=== PATIENT | male | born 1995 | race Caucasian/White ===

== ENCOUNTER 2020-10-28 12:51 | Emergency (ER) | payer BC, SELFPAY ==
--- NOTE | ~2020-10-28 | XR_ITS ---
XR ankle RT min 3V 10/28/2020 13:14 INDICATION: Right ankle pain PROCEDURE: 4 views right ankle COMPARISON: No prior studies for comparison. FINDINGS: Fracture, dislocation or subluxation is not identified. The soft tissues appear within norm al limits. No foreign bodies are identified. IMPRESSION: 1: NO ACUTE BONE OR JOINT ABNORMALITY IDENTIFIED. Reviewed, dictated and finalized at location A. ANESTHESIA NURSE
[2020-10-28 13:02] VITALS: BP 148/62; PULSE 95; RESP 16; TEMP 36.7; O2SAT 100
--- NOTE | 2020-10-28 13:30 | ED.GENADULT ---
HPI - General Adult General Chief complaint: Extremity Injury, Lower Stated complaint: right ankle pain Time Seen by Provider: 10/28/20 13:30 Source: patient Mode of arrival: ambulatory Limitations: no limitations History of Present Illness HPI narrative: 25-year-old male patient presents to the [facility] with complaints of right ankle pain. Patient states that he rolled his ankle today, about 30 minutes prior to arrival, when he was cutting wood today. Patient presented to the [facility] on crutches. Patient denies any numbness or tingling to the toes. Patient denies taking anything for the pain prior to arrival. Patient has current ice pack onto the ankle at this time. Related Data Home Medications Medication Instructions Recorded Confirmed No Home Medications 10/28/20 10/28/20 Allergies Allergy/AdvReac Type Severity Reaction Status Date / Time No Known Allergies Allergy Unverified 12/28/16 13:43 Review of Systems Review of Systems: Narrative: CONSTITUTIONAL: Denies fever, chills, or sweats. EYES: Denies visual changes, redness, or discharge. ENT: Denies rhinorrhea, congestion, sore throat, or otalgia. CARDIOVASCULAR: Denies chest pain, palpitations, or edema. RESPIRATORY: Denies cough or dyspnea. GASTROINTESTINAL: Denies abdominal pain, nausea, vomiting, or diarrhea. GENITOURINARY: Denies dysuria or hematuria. SKIN: Denies rash or itching. MUSCULOSKELETAL: Denies back pain, joint pain, or myalgia. Positive right ankle pain NEUROLOGIC: Denies headache, numbness, or weakness. PSYCHIATRIC: Denies anxiety or depression. [facility] Past Medical History Medical History (Updated 10/28/20 @ 13:32 by CHINYERE Gotti) No significant medical problems Comments At the time of my signature I agree with nursing past medical history, surgical, social, and family history. There is no relevant family history pertinent to the presenting complaint. Exam Narrative: Exam Narrative: GENERAL: Well-appearing, well-nourished, and in no acute distress. HEAD: Normocephalic, atraumatic. EYES: PERRLA and EOMI. ENT: Nares clear, no rhinorrhea or epistaxis. Mucous membranes moist. NECK: Supple. No lymphadenopathy CHEST: Clear to auscultation. No respiratory distress. HEART: Regular rate and rhythm. No murmur heard. Normal peripheral pulses. ABDOMEN: Soft, nontender, nondistended, normal active bowel sounds. EXTREMITIES: Patient is unable to bear weight and ambulate on the right foot without pain. The R ankle is without obvious asymmetry or deformity when compared to the L ankle. Patient can flex/extend but is weaker than the left ankle, normal invert/rustam. No obvious surface trauma, ecchymosis, or soft tissue swelling. Bony tenderness to palpation over the lateral malleolus. Anterior talofibular ligament, posterior talofibular ligament, calcaneofibular ligament nontender and without swelling. No tenderness or deformity of the midfootor over the proximal fifth metatarsal. Good DP and posterior tibial pulses and sensation to light touch normal. Talar tilt test is negative for ligament laxity to valgus or vargus stress. Negative anterior draw. Peroneal nerve is intact with strong eversion and plantar flexion. SKIN: Warm, dry, no rash. NEURO: No focal deficits. Alert and oriented x3. Course Vital Signs Vital signs: Vital Signs Temperature 36.7 C 10/28/20 13:02 Pulse Rate 95 10/28/20 13:02 Respiratory Rate 16 10/28/20 13:02 Blood Pressure 148/62 H 10/28/20 13:02 Pulse Oximetry 100 10/28/20 13:02 Temperature 36.7 C 10/28/20 13:02 Pulse Rate 95 10/28/20 13:02 Respiratory Rate 16 10/28/20 13:02 Blood Pressure 148/62 H 10/28/20 13:02 Pulse Oximetry 100 10/28/20 13:02 Vital signs reviewed The patient has been informed that they may have pre-hypertension or Hypertension based on a BP reading in the department. I recommend that the patient call the primary care provider listed on their discharge instruct
== END 2020-10-28 13:38 | disposition home or self-care (01) ==
PROVIDERS: Emergency Provider Nurse Practitioner Family
DX: S93.401A Sprain of unspecified ligament of right ankle, initial encounter (principal); X50.9XXA Other and unspecified overexertion or strenuous movements or postures, initial encounter
CPT/HCPCS: 73610; 99213; G0463

== ENCOUNTER 2022-02-16 16:32 | Emergency (ER) | payer OTHER, SELFPAY ==
--- NOTE | ~2022-02-16 | XR_ITS ---
EXAMINATION: XR foot RT min 3V, XR ankle RT min 3V EXAM DATE: 02/16/2022 17:14 INDICATION: Right foot, ankle pain. Injury, initial encounter. Stepped in a hole. TECHNIQUE: Right foot dorsoplantar, lateral and oblique projections obtained and reviewed. Right ank le frontal, lateral and oblique projections obtained and reviewed. Correlation is made to right ankle x-ray from 10/28/2020. FINDINGS: Right metatarsal bones unremarkable. The right ankle mortise appears intact. Mild subtala r joint osteoarthritis, could be posttraumatic in patients age. There are no acute fractures or dislo cations identified. There is no subcutaneous gas. The soft tissue is unremarkable. There are no r adiopaque foreign bodies. IMPRESSION: 1. Right foot, ankle exam without acute osseous findings. Reviewed, dictated and finalized at location G. IMPRESSION: 1. Right foot, ankle exam without acute osseous findings.
[2022-02-16 16:36] VITALS: BP 135/95; PULSE 82; RESP 14; TEMP 36.5; O2SAT 97
--- NOTE | 2022-02-16 16:57 | ED.LOWEXIN ---
HPI - Extremity Injury (Lower) General Chief Complaint: Extremity Injury, Lower Stated Complaint: right ankle inj Time Seen by Provider: 02/16/22 16:48 History of Present Illness HPI Narrative: 26-year-old male presents emergency room with complaints of a right pain. Patient states that he actually stepped into a hole in the sidewalk and suffered an inversion injury. Patient is able ambulate with pain. No history of prior injuries to the. Related Data Allergies Allergy/AdvReac Type Severity Reaction Status Date / Time No Known Allergies Allergy Verified 02/16/22 16:48 Review of Systems Review of Systems: CONSTITUTIONAL: Denies fever, chills, or sweats. EYES: Denies visual changes, redness, or discharge. ENT: Denies rhinorrhea, congestion, sore throat, or otalgia. CARDIOVASCULAR: Denies chest pain, palpitations, or edema. RESPIRATORY: Denies cough or dyspnea. GASTROINTESTINAL: Denies abdominal pain, nausea, vomiting, or diarrhea. GENITOURINARY: Denies dysuria or hematuria. SKIN: Denies rash or itching. MUSCULOSKELETAL: Reports right ankle pain NEUROLOGIC: Denies headache, numbness, dizziness, or weakness. PSYCHIATRIC: Denies anxiety or depression. [facility] Past Medical History Medical History No significant medical problems Exam Narrative: GENERAL: Well-appearing, well-nourished, and in no acute distress. HEAD: Normocephalic, atraumatic. EYES: PERRLA and EOMI. ENT: Nares clear, no rhinorrhea or epistaxis. Mucous membranes moist. CHEST: Clear to auscultation. No respiratory distress. No wheezes rales or rhonchi HEART: Regular rate and rhythm. No murmur heard. Normal peripheral pulses. EXTREMITIES: Right ankle: Tenderness and soft tissue swelling around the anterior talofibular ligament; no obvious bony abnormality; no joint laxity; neurovascular distally intact SKIN: Warm, dry, no rash. NEURO: No focal deficits. Alert and oriented x3. PSYCH: Normal mood and affect. Course Vital Signs Vital signs: Vital Signs Temperature 36.5 C 02/16/22 16:36 Pulse Rate 82 02/16/22 16:36 Respiratory Rate 14 02/16/22 16:36 Blood Pressure 135/95 H 02/16/22 16:36 Pulse Oximetry 97 02/16/22 16:36 Temperature 36.5 C 02/16/22 16:36 Pulse Rate 82 02/16/22 16:36 Respiratory Rate 14 02/16/22 16:36 Blood Pressure 135/95 H 02/16/22 16:36 Pulse Oximetry 97 02/16/22 16:36 MDM - Extremity Injury (Lower) MDM Narrative Medical decision making narrative: 18-year-old male presented emergency room complaints of right ankle pain after twisting his ankle walking into: The sidewalk. X-rays of his ankle and foot show no acute abnormalities. Patient likely has low-grade sprain of his anterior talofibular ligament. We will plan Nicolas bandage and discussed conservative management. Differential Diagnosis Differential diagnosis: Likely ankle sprain and strain Medical Records Attestation: I reviewed the patient's medical records. Imaging Data Radiologist's impression: Impressions Ankle X-Ray 02/16/22 17:18 IMPRESSION: 1. Right foot, ankle exam without acute osseous findings. Foot X-Ray 02/16/22 17:18 IMPRESSION: 1. Right foot, ankle exam without acute osseous findings. Discharge Plan Discharge Clinical Impression: Ankle sprain and strain Patient Disposition: Home, Self-Care Condition: Stable Instructions: Antibiotic Form Prescriptions: New naproxen 500 mg tablet 500 mg PO BID Qty: 30 RF: 0 Follow-up/Referrals: PHYSICIAN,CAKE KNOCKER [Primary Care Provider] - Time of Disposition: 17:43
[2022-02-16 17:58] VITALS: BP 127/79; PULSE 74; RESP 17; O2SAT 99
== END 2022-02-16 18:00 | disposition home or self-care (01) ==
PROVIDERS: Emergency Provider Nurse Practitioner Family
DX: S93.401A Sprain of unspecified ligament of right ankle, initial encounter (principal); S96.911A Strain of unspecified muscle and tendon at ankle and foot level, right foot, initial encounter; X50.9XXA Other and unspecified overexertion or strenuous movements or postures, initial encounter
CPT/HCPCS: 73610; 73630; 99283

== ENCOUNTER 2023-09-07 15:37 | Emergency (ER) | payer OTHER, SELFPAY ==
--- NOTE | ~2023-09-07 | XR_ITS ---
XR wrist RT min 3V DATE: 09/07/2023 16:55 INDICATION: Injury, wrist pain. TECHNIQUE: 4 views of right wrist COMPARISON: None FINDINGS: Old fracture deformities of distal radius and ulnar styloid process, the latter ununited. No recent fracture or dislocation. No periosteal reaction or bone destruction. No chondrocalcinosis o r erosive change. 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 IMPRESSION: Old distal radial and ununited ulnar styloid process fracture lashae vasquez
[2023-09-07 16:00] VITALS: BP 120/82; PULSE 73; RESP 18; TEMP 37.1; O2SAT 98
--- NOTE | 2023-09-07 16:17 | ED.UPPEXIN ---
HPI - Extremity Injury (Upper) General Chief Complaint: Extremity Injury, Upper Stated Complaint: right wrist injury Time Seen by Provider: 09/07/23 15:43 Source: patient Mode of arrival: ambulatory Limitations: no limitations History of Present Illness HPI narrative: 28-year-old male presents to [facility] with complaints of pain and decreased strength to his right wrist since 11:00 a.m. today. 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 Patient reports he has had pain and decreased strength to his right wrist since. Patient reports that he applied cool compress with little relief. Patient denies swelling, bruising, erythema, numbness or tingling. MD complaint: injury to: right and wrist Onset (ago): hour(s) (5) Other Extremity Injury: Right: wrist Place: work Relieving factors: rest Exacerbating factors: movement of extremity Associated symptoms: denies other symptoms Treatments prior to arrival: cold therapy Related Data Home Medications Medication Instructions Recorded Confirmed No Home Medications 09/07/23 09/07/23 Allergies Allergy/AdvReac Type Severity Reaction Status Date / Time No Known Allergies Allergy Verified 09/07/23 15:58 Review of Systems Constitutional: Constitutional: Denies chills, Denies fatigue, Denies fever(s) and Denies weakness ENT: Denies dizziness, Denies epistaxis and Denies nasal congestion Cardiovascular: Cardiovascular: Denies chest pain Respiratory: Respiratory: Denies cough, Denies dyspnea and Denies wheezing Gastrointestinal: Gastrointestinal: Denies diarrhea, Denies nausea and Denies vomiting Musculoskeletal: Musculoskeletal: Reports arthralgias Comments: Right wrist pain Neurologic: Denies vertigo, Denies dizziness and Denies syncope Allergic/Immunologic: Allergic/Immunologic: Denies throat swelling, Denies tongue swelling and Denies wheezing PMFSH Past Medical History Medical History No significant medical problems Comments At time of signature, I agree with nursing past medical, surgical, social and family history. There is no relevant family history pertinent to the presenting complaint. Exam Const: General: healthy appearing and no acute distress Nutritional Appearance: well nourished Orientation/consciousness: patient oriented x3 Limitations: no limitations Eyes: Conjunctivae: conjunctivae normal Neck: Neck: normal visual inspection Resp: Effort & Inspection: normal respiratory effort and not labored Auscultation: clear to auscultation bilaterally, no crackles, no rales, no rhonchi and no wheezes Cardio: Rate: regular rate Rhythm: regular rhythm Heart sounds: no murmurs Skin: General skin exam: normal color Rashes: no rashes Wounds: no wounds Neuro: General: patient oriented x3 Speech: normal speech Gait exam (Neuro): Normal gait present Extrem: General: normal to inspection and no clubbing, cyanosis or edema Other: no swelling, bruising or erythema noted to right wrist. Hand grasps are equal and strong. Pulses are within normal limits. Psych: Mental Status: mental status grossly normal Affect: normal affect Attitude: cooperative Course Course Level of Care: Express Care Visit Vital Signs Vital signs: Vital Signs Temperature 37.1 C 09/07/23 16:00 Pulse Rate 73 09/07/23 16:00 Respiratory Rate 18 09/07/23 16:00 Blood Pressure 120/82 09/07/23 16:00 Pulse Oximetry 98 09/07/23 16:00 Oxygen Delivery Room Air 09/07/23 16:00 Temperature 37.1 C 09/07/23 16:00 Pulse Rate 73 09/07/23 16:00 Respiratory Rate 18 09/07/23 16:00 Blood Pressure 120/82 09/07/23 16:00 Pulse Oximetry 98 09/07/23 16:00 Oxygen Delivery Room Air 09/07/23 16:00 MDM - Extremity Injury (Upper) MDM Narrative Medical decision making narrative: due to no x-ray tech on staff today at
== END 2023-09-07 17:10 | disposition home or self-care (01) ==
PROVIDERS: Emergency Provider Nurse Practitioner Family
DX: S63.501A Unspecified sprain of right wrist, initial encounter (principal); W22.8XXA Striking against or struck by other objects, initial encounter
CPT/HCPCS: 73110; 99213; G0463